=== PATIENT | male | born 1985 | race Caucasian/White ===

== ENCOUNTER 2018-07-16 19:39 | Inpatient (IN) | payer MEDICAID ==
[2018-07-16 20:22] LABS: ADD MAN DIFF? NO
[2018-07-16 20:24] LABS: WHITE BLOOD COUNT 11.1 10^3/ul (4.8-10.8)
[2018-07-16 20:24] LABS: ABNORMAL IP MESSAGE 1; BASOPHIL # 0.1 10^3/ul (0.0-0.1); BASOPHILS % 0.7 % (0.0-2.0); EOSINOPHILS % 0.3 % (0.0-7.0); HEMATOCRIT 24.7 % (42.0-52.0); LYMPHOCYTES % 18.3 % (15.0-51.0); MEAN CORPUSCULAR HGB CONC 32.4 g/dl (32.0-37.0); MEAN CORPUSCULAR VOLUME 111.3 fl (82.0-101.0); MEAN PLATELET VOLUME 11.7 fl (7.4-10.4); MONOCYTE # 1.4 10^3/ul (0.3-0.9); MONOCYTES % 12.3 % (0.0-11.0); NEUTROPHIL # 7.4 10^3/ul (1.6-7.5); NEUTROPHILS % 66.9 % (39.0-77.0); PLATELET COUNT 75 10^3/UL (140-415); POSITIVE DIFF @See below; RED BLOOD COUNT 2.22 10^6/ul (4.70-6.10); RED CELL DISTRIBUTION WIDTH 15.5 % (11.5-14.5)
[2018-07-16 20:28] LABS: INR 2.15; PROTIME 24.5 Sec (11.9-14.9); PT RATIO 1.9
[2018-07-16 20:29] LABS: PARTIAL THROMBOPLASTIN TIME 35.7 Sec (23.0-35.0)
[2018-07-16] MEDS: SOD CHLORIDE 0.9% 1,000 ML IV ×2 (20:29)
[2018-07-16] MEDS: HYDROmorphONE 1 MG/ML SYG IV (20:29)
[2018-07-16] MEDS: ONDANSETRON 4 MG INJ IV ×3 (20:29→23:19)
[2018-07-16 20:30] LABS: ALANINE AMINOTRANSFERASE 45 IU/L (13-69); ALBUMIN 2.4 g/dl (3.3-4.9); ALBUMIN/GLOBULIN RATIO 0.64; ALKALINE PHOSPHATASE 161 IU/L (42-121); ANION GAP 12 (5-13); ASPARTATE AMINO TRANSFERASE 110 IU/L (15-46); BILIRUBIN,INDIRECT 2.4 mg/dl (0-1.1); BILIRUBIN,TOTAL 2.9 mg/dl (0.2-1.3); BLOOD UREA NITROGEN 16 mg/dl (7-20); CALCIUM 7.4 mg/dl (8.4-10.2); CARBON DIOXIDE 15 mmol/L (21-31); CHLORIDE 109 mmol/L (97-110); CREATININE 1.12 mg/dl (0.61-1.24); Estimated GFR > 60 mL/min (>60); GLUCOSE 117 mg/dl (70-220); LIPASE 122 U/L (23-300); POTASSIUM 4.6 mmol/L (3.5-5.1); SODIUM 136 mmol/L (135-144); TOTAL PROTEIN 6.1 g/dl (6.1-8.1)
[2018-07-16] MEDS: OCTREOTIDE 50 MCG in SOD CHLORIDE 0.9% 25 ML IVPB (20:40)
[2018-07-16] MEDS: PANTOPRAZOLE IV 80 MG in SOD CHLORIDE 0.9% 100 ML IVPB (20:40)
[2018-07-16] MEDS: OCTREOTIDE 500 MCG in SOD CHLORIDE 0.9% 49 ML IV (21:00)
[2018-07-16] MEDS: PANTOPRAZOLE IV 80 MG in SOD CHLORIDE 0.9% 100 ML IV (21:00)
[2018-07-16] MEDS: PHYTONADIONE 5 MG in DEXTROSE 5% 50 ML IVPB (21:21)
[2018-07-16] MEDS ORDERED: SOD CHLORIDE 0.9% 1,000 ML IV (21:57)
[2018-07-16] MEDS ORDERED: ACETAMINOPHEN 325 MG TAB PO (22:00)
[2018-07-16] MEDS ORDERED: ONDANSETRON 4 MG INJ IV (22:00)
[2018-07-16] MEDS ORDERED: METOCLOPRAMIDE 10 MG INJ IV (22:00)
[2018-07-16] MEDS ORDERED: morphine 2 MG INJ IV (22:00)
[2018-07-16] MEDS: morphine 4 MG/ML VIAL IV (22:06)
[2018-07-16] MEDS ORDERED: LORAZEPAM 2 MG INJ IV (22:30)
[2018-07-16 22:37] LABS: HEMATOCRIT 17.8 % (42.0-52.0)
[2018-07-16 22:41] LABS: HAAIG REFLEX REFLEX FILED
[2018-07-16 22:45] LABS: HEMOGLOBIN 5.6 g/dl (14.0-18.0)
[2018-07-16 22:52] LABS: AMMONIA 34 umol/l (9-30)
[2018-07-16 23:28] LABS: HEPATITIS B SURFACE ANTIGEN NEGATIVE (NEGATIVE)
[2018-07-16 23:46] LABS: HEPATITIS B CORE ANTIBODY NEGATIVE (NEGATIVE); HEPATITIS C VIRAL ANTIBODY NEGATIVE (NEGATIVE)
[2018-07-17 00:04] LABS: FOLATE 7.7 ng/ml (2.8-20.0)
[2018-07-17 00:26] LABS: WHITE BLOOD COUNT 17.7 10^3/ul (4.8-10.8)
[2018-07-17 00:26] LABS: ABNORMAL IP MESSAGE 1; HEMATOCRIT 22.5 % (42.0-52.0); HEMOGLOBIN 7.1 g/dl (14.0-18.0); MEAN CORPUSCULAR HEMOGLOBIN 34.5 pg (29.0-33.0); MEAN CORPUSCULAR HGB CONC 31.6 g/dl (32.0-37.0); MEAN CORPUSCULAR VOLUME 109.2 fl (82.0-101.0); MEAN PLATELET VOLUME 12.1 fl (7.4-10.4); NUCLEATED RED BLOOD CELLS% 0.2 /100WBC (0.0-0.0); PLATELET COUNT 67 10^3/UL (140-415); POSITIVE DIFF @See below; RED BLOOD COUNT 2.06 10^6/ul (4.70-6.10); RED CELL DISTRIBUTION WIDTH 17.3 % (11.5-14.5)
[2018-07-17 00:33] LABS: ADD MAN DIFF? YES
[2018-07-17 00:45] LABS: PROTIME 22.2 Sec (11.9-14.9); PT RATIO 1.7
[2018-07-17 01:12] LABS: ANISOCYTOSIS 3+ (0-0); BAND NEUTROPHILS #M 1.7 10^3/ul (0.0-0.6); BAND NEUTROPHILS % (M) 10 % (0-4); GIANT THROMBO% (M) 1 % (0-0); LYMPHOCYTES #M 1.7 10^3/ul (0.8-2.9); LYMPHOCYTES % (M) 10 % (15-51); METAMYELOCYTES #M 0.1 10^3/ul (0.0-0.0); METAMYELOCYTES %M 1 % (0-0); MONOCYTES % (M) 6 % (0-11); MYELOCYTES #M 0.1 10^3/ul (0.0-0.0); MYELOCYTES % (M) 1 % (0-0); PLATELET ESTIMATE DECREASED; POLYCHROMASIA 2+ (0-0); PROMYELOCYTES #M 0.1 10^3/ul (0-0); PROMYELOCYTES % (M) 1 % (0-0); SEG NEUT #M 12.9 10^3/ul (1.6-7.5); SEGMENTED NEUTROPHILS (M) % 71 % (39-77); SMUDGE%M 49 % (0-0)
[2018-07-17] MEDS ORDERED: CEFAZOLIN 1 GM INJ (01:49)
[2018-07-17] MEDS ORDERED: ONDANSETRON 4 MG INJ (01:49)
[2018-07-17] MEDS ORDERED: SUCCINYLCHOLINE CHLORIDE 100 MG/5 ML SYG IV (02:12)
[2018-07-17] MEDS ORDERED: PROPOFOL 20 ML (02:12)
[2018-07-17] MEDS ORDERED: ROCURONIUM 50 MG INJ (02:12)
[2018-07-17] MEDS ORDERED: NEOSTIGMINE 3 MG/3 ML SYRINGE (02:35)
[2018-07-17] MEDS ORDERED: GLYCOPYRROLATE 0.4 MG INJ (02:35)
[2018-07-17] MEDS ORDERED: SUGAMMADEX SODIUM 200 MG/2 ML VIAL IV (02:53)
[2018-07-17] MEDS: OCTREOTIDE 1 MG in DEXTROSE 5% 95 ML IV ×2 (03:25→20:57)
[2018-07-17] MEDS: PANTOPRAZOLE IV 80 MG in SOD CHLORIDE 0.9% 100 ML IV ×3 (03:25→23:00)
[2018-07-17] MEDS ORDERED: LORAZEPAM 2 MG INJ IV (03:30)
[2018-07-17] MEDS: CEFTRIAXONE 1 GM/50 ML (PMX) 50 ML IVPB (03:48)
[2018-07-17] MEDS: SOD CHLORIDE 0.9% 1,000 ML IV (03:48)
[2018-07-17] MEDS: ONDANSETRON 4 MG INJ IV (04:35)
[2018-07-17 04:56] LABS: ABNORMAL IP MESSAGE 1; HEMATOCRIT 23.6 % (42.0-52.0); HEMOGLOBIN 7.7 g/dl (14.0-18.0); MEAN CORPUSCULAR HEMOGLOBIN 34.1 pg (29.0-33.0); MEAN CORPUSCULAR HGB CONC 32.6 g/dl (32.0-37.0); MEAN CORPUSCULAR VOLUME 104.4 fl (82.0-101.0); NUCLEATED RED BLOOD CELLS% 0.1 /100WBC (0.0-0.0); PLATELET COUNT 63 10^3/UL (140-415); POSITIVE DIFF @See below; RED BLOOD COUNT 2.26 10^6/ul (4.70-6.10); RED CELL DISTRIBUTION WIDTH 18.1 % (11.5-14.5)
[2018-07-17 04:56] LABS: WHITE BLOOD COUNT 18.3 10^3/ul (4.8-10.8)
[2018-07-17 05:02] LABS: HEMOGLOBIN A1C 5.2 % (0-5.9)
[2018-07-17 05:02] LABS: ADD MAN DIFF? YES
[2018-07-17] MEDS: PHYTONADIONE 5 MG in DEXTROSE 5% 50 ML IVPB (05:16)
[2018-07-17] MEDS: THIAMINE 200 MG INJ IM ×2 (05:19→11:02)
[2018-07-17 05:20] LABS: PROTIME 22.2 Sec (11.9-14.9); PT RATIO 1.7
[2018-07-17 05:21] LABS: ALANINE AMINOTRANSFERASE 85 IU/L (13-69); ALBUMIN 2.3 g/dl (3.3-4.9); ALBUMIN/GLOBULIN RATIO 0.79; ALKALINE PHOSPHATASE 79 IU/L (42-121); ANION GAP 18 (5-13); ASPARTATE AMINO TRANSFERASE 314 IU/L (15-46); BILIRUBIN,INDIRECT 3.7 mg/dl (0-1.1); BILIRUBIN,TOTAL 5.9 mg/dl (0.2-1.3); BLOOD UREA NITROGEN 20 mg/dl (7-20); CALCIUM 6.6 mg/dl (8.4-10.2); CHLORIDE 114 mmol/L (97-110); CREATININE 1.55 mg/dl (0.61-1.24); Estimated GFR 52 mL/min (>60); GLUCOSE 121 mg/dl (70-220); MAGNESIUM 1.7 mg/dl (1.7-2.5); POTASSIUM 5.8 mmol/L (3.5-5.1); SODIUM 142 mmol/L (135-144); TOTAL PROTEIN 5.2 g/dl (6.1-8.1)
[2018-07-17 05:27] LABS: IMMEDIATE SPIN CROSSMATCH 1 4
[2018-07-17 05:28] LABS: CARBON DIOXIDE 10 mmol/L (21-31)
[2018-07-17] MEDS: ALBUMIN HUMAN 25% 50 ML IV ×3 (05:55→22:59)
[2018-07-17 05:57] LABS: HIV 1&2 ANTIBODY NEGATIVE (NEGATIVE)
[2018-07-17] MEDS: LORAZEPAM 2 MG INJ IV (06:14)
[2018-07-17] MEDS: HYDROmorphONE 1 MG/ML SYG IV (06:24)
[2018-07-17] MEDS: NORepinephrine 8MG/250 ML (PMX 250 ML IV (06:46)
[2018-07-17] MEDS: FUROSEMIDE 20 MG INJ IV ×2 (06:46→08:30)
[2018-07-17 07:36] LABS: ANISOCYTOSIS 2+ (0-0); BAND NEUTROPHILS #M 2.5 10^3/ul (0.0-0.6); BAND NEUTROPHILS % (M) 14 % (0-4); EOSINOPHILS % (M) 2 % (0-7); ERYTHROBLAST% (NRBC) (M) 1 % (0-0); LYMPHOCYTES #M 0.9 10^3/ul (0.8-2.9); LYMPHOCYTES % (M) 5 % (15-51); METAMYELOCYTES #M 0.7 10^3/ul (0.0-0.0); METAMYELOCYTES %M 4 % (0-0); MONOCYTE #M 0.1 10^3/ul (0.3-0.9); MONOCYTES % (M) 1 % (0-11); MYELOCYTES #M 0.7 10^3/ul (0.0-0.0); MYELOCYTES % (M) 4 % (0-0); PLATELET ESTIMATE SIG DECREASED; POLYCHROMASIA 1+ (0-0); SEG NEUT #M 13.3 10^3/ul (1.6-7.5); SEGMENTED NEUTROPHILS (M) % 70 % (39-77); SMUDGE%M 31 % (0-0)
[2018-07-17] MEDS ORDERED: ALBUMIN HUMAN 25% 50 ML IV (09:00)
[2018-07-17 09:07] LABS: AADO2 Arterial 160.8 mmHg (7.0-24.0); Allen Test ACCEPTAB; Arterial Base Excess -14.7 mmol/L (-3.0-3); Arterial Blood Gas Oxygen Sat 94.7 mmHG (95.0-98.0); Arterial COHb 1.2 % (0.0-3.0); Arterial Fraction of Oxyhgb 93.1 % (93.0-99.0); Arterial HCO3 11.6 mmol/L (22.0-26.0); Arterial MetHb 0.5 % (0.0-1.5); Arterial pCO2 28.7 mmhg (35-45); MODE NASAL CANNULA; Site Right Radial
[2018-07-17] MEDS: NA BICARBONATE 8.4% 50 ML SYG IV (10:01)
[2018-07-17] MEDS: SODIUM BICARBONATE (IV ADD) 75 MEQ in DEXTROSE 5%-0.45% NACL 925 ML IV (11:02)
[2018-07-17] MEDS: SUCRALFATE (100 MG/ML) 10ML CUP GTB ×3 (12:45→20:14)
[2018-07-17] MEDS: PHYTONADIONE 10 MG/ML INJ SC (12:45)
[2018-07-17 12:52] LABS: IMMEDIATE SPIN CROSSMATCH 1
[2018-07-17] MEDS: LIDOCAINE 1% (MPF) 5 ML VIAL SC (16:30)
[2018-07-17] MEDS ORDERED: METHYLPREDNISOLONE (10 MG/ML) IV SYG IV (17:00)
[2018-07-17] MEDS: METHYLPREDNISOLONE 40 MG INJ IV (17:08)
[2018-07-17] MEDS: HEPARIN (10 UNITS/ML) 5ML SYG IV (17:10)
[2018-07-17 17:29] LABS: ADD MAN DIFF? NO
[2018-07-17 17:30] LABS: ABNORMAL IP MESSAGE 1; BASOPHILS % 0.3 % (0.0-2.0); EOSINOPHILS % 0.2 % (0.0-7.0); HEMOGLOBIN 8.2 g/dl (14.0-18.0); LYMPHOCYTES # 1.4 10^3/ul (0.8-2.9); LYMPHOCYTES % 11.7 % (15.0-51.0); MEAN CORPUSCULAR HEMOGLOBIN 33.5 pg (29.0-33.0); MEAN CORPUSCULAR HGB CONC 34.2 g/dl (32.0-37.0); MEAN PLATELET VOLUME 11.5 fl (7.4-10.4); MONOCYTE # 1.6 10^3/ul (0.3-0.9); MONOCYTES % 13.3 % (0.0-11.0); NEUTROPHIL # 8.8 10^3/ul (1.6-7.5); NEUTROPHILS % 73.8 % (39.0-77.0); NUCLEATED RED BLOOD CELLS% 0.2 /100WBC (0.0-0.0); PLATELET COUNT 47 10^3/UL (140-415); POSITIVE DIFF @See below; RED BLOOD COUNT 2.45 10^6/ul (4.70-6.10); RED CELL DISTRIBUTION WIDTH 18.6 % (11.5-14.5)
[2018-07-17 17:30] LABS: WHITE BLOOD COUNT 11.8 10^3/ul (4.8-10.8)
[2018-07-17 17:48] LABS: ANION GAP 7 (5-13); BLOOD UREA NITROGEN 33 mg/dl (7-20); CALCIUM 6.9 mg/dl (8.4-10.2); CARBON DIOXIDE 20 mmol/L (21-31); CHLORIDE 111 mmol/L (97-110); CREATININE 2.05 mg/dl (0.61-1.24); Estimated GFR 38 mL/min (>60); GLUCOSE 145 mg/dl (70-220); SODIUM 138 mmol/L (135-144)
[2018-07-17 17:49] LABS: INR 2.25; PROTIME 25.4 Sec (11.9-14.9)
[2018-07-17 18:01] LABS: POTASSIUM 5.7 mmol/L (3.5-5.1)
[2018-07-17] MEDS: TRIAMCINOLONE ACET 0.1% 15 GM OINT TOP (22:59)
[2018-07-17 23:03] LABS: LACTIC ACID 2.2 mmol/L (0.5-2.0)
[2018-07-17 23:23] LABS: CREATININE,URINE RANDOM 169.38 mg/dl (20-370)
[2018-07-17] MEDS: CALCIUM GLUCONATE 10% 1 GM in DEXTROSE 5% 100 ML IVPB (23:27)
[2018-07-17 23:28] LABS: SODIUM,URINE RANDOM < 13 mmol/L (30-90)
[2018-07-17 23:36] LABS: ADD UMIC YES; UR ASCORBIC ACID NEGATIVE (NEGATIVE); UR BACTERIA FEW /HPF (NONE SEEN); UR BILIRUBIN (Dip) NEGATIVE (NEGATIVE); UR BLOOD (Dip) NEGATIVE (NEGATIVE); UR CLARITY CLOUDY (CLEAR); UR COLOR AMBER (YELLOW); UR GLUCOSE (Dip) NEGATIVE (NEGATIVE); UR KETONES (Dip) TRACE mg/dL (NEGATIVE); UR LEUKOCYTE ESTERASE (Dip) NEGATIVE Leu/ul (NEGATIVE); UR MUCUS MANY /HPF (NONE SEEN); UR NITRITE (Dip) NEGATIVE (NEGATIVE); UR RBC 2 /HPF (0-5); UR SPECIFIC GRAVITY (Dip) 1.019 (1.003-1.030); UR SQUAMOUS EPITHELIAL CELL FEW /HPF (FEW); UR TOTAL PROTEIN (Dip) NEGATIVE (NEGATIVE); UR UROBILINOGEN (Dip) NEGATIVE (NEGATIVE); UR WBC 4 /HPF (0-5)
[2018-07-18 01:00] LABS: ADD MAN DIFF? NO
[2018-07-18 01:02] LABS: ABNORMAL IP MESSAGE 1; BASOPHILS % 0.2 % (0.0-2.0); EOSINOPHILS # 0.1 10^3/ul (0.0-0.5); EOSINOPHILS % 0.5 % (0.0-7.0); HEMATOCRIT 23.2 % (42.0-52.0); HEMOGLOBIN 7.8 g/dl (14.0-18.0); LYMPHOCYTES # 1.4 10^3/ul (0.8-2.9); LYMPHOCYTES % 13.3 % (15.0-51.0); MEAN CORPUSCULAR HEMOGLOBIN 32.8 pg (29.0-33.0); MEAN CORPUSCULAR HGB CONC 33.6 g/dl (32.0-37.0); MEAN CORPUSCULAR VOLUME 97.5 fl (82.0-101.0); MEAN PLATELET VOLUME 10.8 fl (7.4-10.4); MONOCYTE # 1.5 10^3/ul (0.3-0.9); MONOCYTES % 13.8 % (0.0-11.0); NEUTROPHIL # 7.5 10^3/ul (1.6-7.5); NEUTROPHILS % 71.6 % (39.0-77.0); NUCLEATED RED BLOOD CELLS # 0.1 10^3/ul (0.0-0.0); NUCLEATED RED BLOOD CELLS% 0.6 /100WBC (0.0-0.0); PLATELET COUNT 41 10^3/UL (140-415); POSITIVE DIFF @See below; RED BLOOD COUNT 2.38 10^6/ul (4.70-6.10); RED CELL DISTRIBUTION WIDTH 19.2 % (11.5-14.5)
[2018-07-18 01:02] LABS: WHITE BLOOD COUNT 10.5 10^3/ul (4.8-10.8)
[2018-07-18] MEDS: PANTOPRAZOLE IV 80 MG in SOD CHLORIDE 0.9% 100 ML IV ×2 (01:13→21:17)
[2018-07-18 02:13] LABS: LACTIC ACID 1.4 mmol/L (0.5-2.0)
[2018-07-18] MEDS: CEFTRIAXONE 1 GM/50 ML (PMX) 50 ML IVPB (03:51)
[2018-07-18 05:48] LABS: ADD MAN DIFF? NO
[2018-07-18 05:51] LABS: ABNORMAL IP MESSAGE 1; BASOPHILS % 0.3 % (0.0-2.0); EOSINOPHILS # 0.1 10^3/ul (0.0-0.5); EOSINOPHILS % 0.7 % (0.0-7.0); HEMATOCRIT 23.6 % (42.0-52.0); HEMOGLOBIN 8.1 g/dl (14.0-18.0); LYMPHOCYTES # 1.3 10^3/ul (0.8-2.9); LYMPHOCYTES % 13.6 % (15.0-51.0); MEAN CORPUSCULAR HEMOGLOBIN 33.6 pg (29.0-33.0); MEAN CORPUSCULAR HGB CONC 34.3 g/dl (32.0-37.0); MEAN CORPUSCULAR VOLUME 97.9 fl (82.0-101.0); MEAN PLATELET VOLUME 11.8 fl (7.4-10.4); MONOCYTE # 1.2 10^3/ul (0.3-0.9); MONOCYTES % 12.3 % (0.0-11.0); NEUTROPHIL # 7.1 10^3/ul (1.6-7.5); NEUTROPHILS % 72.6 % (39.0-77.0); NUCLEATED RED BLOOD CELLS # 0.1 10^3/ul (0.0-0.0); NUCLEATED RED BLOOD CELLS% 0.5 /100WBC (0.0-0.0); PLATELET COUNT 48 10^3/UL (140-415); POSITIVE DIFF @See below; RED BLOOD COUNT 2.41 10^6/ul (4.70-6.10); RED CELL DISTRIBUTION WIDTH 19.1 % (11.5-14.5)
[2018-07-18 05:51] LABS: WHITE BLOOD COUNT 9.8 10^3/ul (4.8-10.8)
[2018-07-18] MEDS: SODIUM BICARBONATE (IV ADD) 75 MEQ in DEXTROSE 5%-0.45% NACL 925 ML IV (06:00)
[2018-07-18 06:24] LABS: ALANINE AMINOTRANSFERASE 295 IU/L (13-69); ALBUMIN 2.5 g/dl (3.3-4.9); ALBUMIN/GLOBULIN RATIO 0.86; ALKALINE PHOSPHATASE 69 IU/L (42-121); ANION GAP 4 (5-13); BILIRUBIN,INDIRECT 2.6 mg/dl (0-1.1); BLOOD UREA NITROGEN 33 mg/dl (7-20); CALCIUM 7.3 mg/dl (8.4-10.2); CARBON DIOXIDE 27 mmol/L (21-31); CHLORIDE 111 mmol/L (97-110); CREATININE 1.36 mg/dl (0.61-1.24); Estimated GFR > 60 mL/min (>60); GLUCOSE 109 mg/dl (70-220); MAGNESIUM 1.7 mg/dl (1.7-2.5); POTASSIUM 4.5 mmol/L (3.5-5.1); SODIUM 142 mmol/L (135-144); TOTAL PROTEIN 5.4 g/dl (6.1-8.1)
[2018-07-18 06:29] LABS: LACTIC ACID 1.4 mmol/L (0.5-2.0)
[2018-07-18 06:50] LABS: ASPARTATE AMINO TRANSFERASE 1410 IU/L (15-46)
[2018-07-18] MEDS: SUCRALFATE (100 MG/ML) 10ML CUP GTB ×4 (09:02→23:15)
[2018-07-18] MEDS: METHYLPREDNISOLONE 40 MG INJ IV (09:03)
[2018-07-18] MEDS: PHYTONADIONE 10 MG/ML INJ SC (09:03)
[2018-07-18] MEDS: TRIAMCINOLONE ACET 0.1% 15 GM OINT TOP ×2 (09:04→21:17)
[2018-07-18] MEDS: ALBUMIN HUMAN 25% 100 ML IV ×3 (09:06→23:17)
[2018-07-18] MEDS: THIAMINE 200 MG INJ IM (10:30)
[2018-07-18] MEDS: OCTREOTIDE 1 MG in DEXTROSE 5% 95 ML IV (15:37)
[2018-07-18] MEDS ORDERED: TRIAMCINOLONE ACET 0.1% 15 GM CR TOP (21:00)
[2018-07-19] MEDS: CEFTRIAXONE 1 GM/50 ML (PMX) 50 ML IVPB (03:07)
[2018-07-19] MEDS: PANTOPRAZOLE IV 80 MG in SOD CHLORIDE 0.9% 100 ML IV (04:42)
[2018-07-19 07:11] LABS: ADD MAN DIFF? NO
[2018-07-19 07:17] LABS: WHITE BLOOD COUNT 10.7 10^3/ul (4.8-10.8)
[2018-07-19 07:17] LABS: ABNORMAL IP MESSAGE 1; BASOPHILS % 0.1 % (0.0-2.0); HEMATOCRIT 24.6 % (42.0-52.0); HEMOGLOBIN 8.3 g/dl (14.0-18.0); LYMPHOCYTES # 1.6 10^3/ul (0.8-2.9); LYMPHOCYTES % 15.3 % (15.0-51.0); MEAN CORPUSCULAR HEMOGLOBIN 33.6 pg (29.0-33.0); MEAN CORPUSCULAR HGB CONC 33.7 g/dl (32.0-37.0); MEAN CORPUSCULAR VOLUME 99.6 fl (82.0-101.0); MEAN PLATELET VOLUME 11.9 fl (7.4-10.4); MONOCYTE # 1.3 10^3/ul (0.3-0.9); MONOCYTES % 11.7 % (0.0-11.0); NEUTROPHIL # 7.7 10^3/ul (1.6-7.5); NUCLEATED RED BLOOD CELLS% 0.3 /100WBC (0.0-0.0); PLATELET COUNT 52 10^3/UL (140-415); POSITIVE DIFF @See below; RED BLOOD COUNT 2.47 10^6/ul (4.70-6.10)
[2018-07-19 07:37] LABS: PHOSPHORUS 2.6 mg/dl (2.5-4.9)
[2018-07-19 07:51] LABS: ALANINE AMINOTRANSFERASE 247 IU/L (13-69); ALBUMIN 3.2 g/dl (3.3-4.9); ALKALINE PHOSPHATASE 73 IU/L (42-121); ANION GAP 5 (5-13); BILIRUBIN,INDIRECT 2.9 mg/dl (0-1.1); BLOOD UREA NITROGEN 22 mg/dl (7-20); CARBON DIOXIDE 29 mmol/L (21-31); CHLORIDE 108 mmol/L (97-110); CREATININE 0.94 mg/dl (0.61-1.24); Estimated GFR > 60 mL/min (>60); GLUCOSE 102 mg/dl (70-220); MAGNESIUM 2.1 mg/dl (1.7-2.5); POTASSIUM 4.3 mmol/L (3.5-5.1); SODIUM 142 mmol/L (135-144); TOTAL PROTEIN 6.1 g/dl (6.1-8.1)
[2018-07-19 08:00] LABS: ASPARTATE AMINO TRANSFERASE 904 IU/L (15-46)
[2018-07-19] MEDS: SUCRALFATE (100 MG/ML) 10ML CUP GTB ×3 (08:13→16:20)
[2018-07-19] MEDS: PHYTONADIONE 10 MG/ML INJ SC (08:14)
[2018-07-19] MEDS: METHYLPREDNISOLONE 40 MG INJ IV (08:15)
[2018-07-19] MEDS: THIAMINE 200 MG INJ IM (08:15)
[2018-07-19] MEDS: TRIAMCINOLONE ACET 0.1% 15 GM OINT TOP (08:29)
[2018-07-19] MEDS: FUROSEMIDE 40 MG INJ IV (11:10)
[2018-07-19 14:43] LABS: CREATININE, RANDOM URINE 153 mg/dL (20-320); MICROALBUMIN 0.9 mg/dL; MICROALBUMIN/CREATININE RATIO 6 (<30)
[2018-07-20] MEDS ORDERED: PANTOPRAZOLE (EC) 40 MG TAB PO (06:00)
== END 2018-07-19 19:00 | disposition home or self-care (01) | DRG 432 ==
LOC: E/R 19:39 → REC 21:56 → TEL 07-18 14:37 → ICU 07-17 03:19
PROC: 06L38CZ Occlusion of Esophageal Vein with Extraluminal Device, Via Natural or Artificial Opening Endoscopic (ICD-10-PCS; principal; 2018-07-17 01:22)
PROC: 30233K1 Transfusion of Nonautologous Frozen Plasma into Peripheral Vein, Percutaneous Approach (ICD-10-PCS; 2018-07-17 01:22)
PROC: 30233N1 Transfusion of Nonautologous Red Blood Cells into Peripheral Vein, Percutaneous Approach (ICD-10-PCS; 2018-07-17 01:22)
PROC: 02H633Z Insertion of Infusion Device into Right Atrium, Percutaneous Approach (ICD-10-PCS; 2018-07-17 01:22)
DX: K70.30 Alcoholic cirrhosis of liver without ascites (principal); I85.11 Secondary esophageal varices with bleeding; K76.7 Hepatorenal syndrome; N17.0 Acute kidney failure with tubular necrosis; D68.4 Acquired coagulation factor deficiency; D62 Acute posthemorrhagic anemia; E87.2 Acidosis; R57.9 Shock, unspecified; R65.10 Systemic inflammatory response syndrome (SIRS) of non-infectious origin without acute organ dysfunction; F10.20 Alcohol dependence, uncomplicated; L40.9 Psoriasis, unspecified; E87.5 Hyperkalemia
CPT/HCPCS: 36415; 36430; 36569; 36600; 71045; 76700; 76937; 80048; 80053; 80307; 81001; 81003; 82043; 82140; 82607; 82746; 82803; 83036; 83605; 83690; 83735; 84100; 84155; 84300; 85014; 85018; 85025; 85610; 85730; 86703; 86704; 86709; 86803; 86850; 86870; 86900; 86901; 86920; 87081; 87340; 93005; 96374; 96375; 99291-25